=== PATIENT | male | born 2000 | race Hispanic/Latino ===

== ENCOUNTER 2018-05-17 10:48 | Emergency (ER) | payer SELFPAY ==
[2018-05-17 11:35] LABS: Bilirubin Negative (Negative); Blood, Urine Trace (Negative); Clarity CLEAR (Clear); Glucose, Urine (Dipstick) Negative (Negative); Leukocyte Moderate (Negative); Nitrite Negative (Negative); Protein, Urine (Dipstick) Negative (Neg-Trace); Specific Gravity, Urine 1.013 (1.002-1.036); Urobilinogen 0.2 mg/dL (0.2-1.0)
[2018-05-17 11:40] LABS: Bacteria/HPF None Seen HPF (None Seen); Pathc Cast-AUWi Flag 2.32 (0-2.49); Squamous Epithelial None Seen HPF (0-3)
[2018-05-17 11:48] LABS: Hyaline Casts/LPF 0-3 HYALINE CAST LPF (0-3 Hyaline)
[2018-05-17] MEDS ORDERED: cefTRIAXone\\ROCEPHIN 250 MG VIAL ONE (11:57)
[2018-05-17] MEDS ORDERED: Lidocaine 1% PF 5 ML VIAL ONE (11:57)
[2018-05-17] MEDS ORDERED: Azithromycin 250 MG TAB ONE (11:57)
[2018-05-17] MEDS ORDERED: Lidocaine 1% (PF) 30 ML VIAL ONE (11:58)
[2018-05-21 21:01] LABS: Chlamydia by PCR Not Detected (NotDetected); GC by PCR DETECTED (NotDetected)
== END 2018-05-17 12:23 | disposition home or self-care (01) ==
LOC: ERS 10:48
DX: N34.2 Other urethritis (principal); Z71.6 Tobacco abuse counseling; F17.210 Nicotine dependence, cigarettes, uncomplicated
CPT/HCPCS: 81003; 81015; 87491; 87591; 96372; 99406; J0696; J2001